=== PATIENT | female | born 1950 | race Hispanic/Latino ===

== ENCOUNTER 2018-05-04 09:56 | Day surgery (SDC) | payer MEDICARE, BC ==
[2018-03-20 16:33] VITALS: BMI 20.9
[2018-05-04] MEDS ORDERED: Lactated Ringer's 1,000 ML IV ONE (12:39)
--- NOTE | 2018-05-04 13:02 | CP.SDSHP ---
Same Day Surgery H & P - History Proposed Procedure: COLONSCOPY Pre-Op Diagnosis: SEE NOTES - Previous Medical/Surgical History Cardiac: ASHD/CAD Neuro: Backaches, Other Misc: Other Pain: 4.Moderate Pain - Allergies Allergies: Allergies pneumonia vaccine Allergy (Uncoded 05/04/18 11:00) SHORTNESS OF BREATH - Physical Exam General Appearance: N Vital Signs: Vital Signs 05/04/18 05/04/18 10:26 11:00 Temperature 97.5 F L 97.5 F L Pulse Rate 80 80 Respiratory 20 20 Rate Blood Pressure 92/66 L 92/66 L O2 Sat by Pulse 100 100 Oximetry Mental Status: Alert & Oriented x3 Neuro: Other Heart: WNL Lungs: WNL GI: Other - {Optional Preform as Required} Breast: WNL Abdomen: Other Rectal: Other Integument: WNL : WNL Ortho: Other ENT: WNL - Impression Pt. Evaluated Today:Candidate for Anesthesia & Procedure: Yes - Date & Time Time: 13:02 Short Stay Discharge - Short Stay Discharge Admitting Diagnosis/Reason for Visit: ANEMIA Disposition: HOME/ ROUTINE Referrals: Job Carias MD [Primary Care Provider] -
[2018-05-04] MEDS ORDERED: Propofol 10 mg/ml Inj (20 ML) ONE (13:08)
[2018-05-04] MEDS ORDERED: Glucagon Recombinant 1 mg Inj ONE (13:17)
[2018-05-04 13:46] VITALS: TEMP 98.7
[2018-05-04] MEDS ORDERED: Belladonna-Phenobarbital PO ONE (13:50)
[2018-05-04 14:37] VITALS: BP 97/56; PULSE 90; RESP 13; O2SAT 99
== END 2018-05-04 14:35 | disposition home or self-care (01) ==
LOC: C.ENDO 09:56
PROVIDERS: ATTEND Specialist
DX: K57.30 Diverticulosis of large intestine without perforation or abscess without bleeding (principal); K58.9 Irritable bowel syndrome, unspecified; K64.8 Other hemorrhoids; K64.4 Residual hemorrhoidal skin tags; D50.9 Iron deficiency anemia, unspecified
CPT/HCPCS: 45380; 88305; J1610; J2704; J7120

== ENCOUNTER 2018-06-11 16:53 | Emergency (ER) | payer MEDICARE, BC ==
[2018-06-11 17:19] VITALS: TEMP 98.3; BMI 20.1
[2018-06-11] MEDS ORDERED: Sodium Chloride 0.9% 1,000 ML IV ONE (17:48)
--- NOTE | 2018-06-11 17:48 | C.PDOC ---
History Of Present Illness Patient is a 68 year old female, with a PMHx of overdose, who presents to ED after being sent in by for evaluation of severe abdominal pain. Patient has had many prior evaluations of abdominal and back pain and claims she does have chronic pain. [employer] reviewed with 8prescribers, 5 pharmacies and extensive narcotics and benzos regimen. She states that she has not used any narcotic pain relievers today. Patient was seen in [place] ER for an unintentional overdose in 2018 of 5 percocet. Time Seen by Provider: 06/11/18 17:37 Chief Complaint (Nursing): Abdominal Pain History Per: Patient, Family History/Exam Limitations: no limitations Onset/Duration Of Symptoms: Days Current Symptoms Are (Timing): Still Present Quality Of Discomfort: "Pain" Recent travel outside of the [place]: No Additional History Per: Patient, Family Past Medical History Reviewed: Historical Data, Nursing Documentation, Vital Signs Vital Signs: Last Vital Signs Temp 98.3 F 06/11/18 17:05 Pulse 115 H 06/11/18 17:05 Resp 20 06/11/18 17:05 BP 135/81 06/11/18 17:05 Pulse Ox 98 06/11/18 17:05 - Medical History PMH: Anemia, Anxiety, Back Problems, Bipolar Disorder, Depression, Fractures (left hip), Gastritis, Gastrointestinal Ulcer, Pancreatitis (WITH STENTS 2010) Denies: Diabetes, Hepatitis, HTN, Chronic Kidney Disease Surgical History: Endoscopy Denies: Pacemaker - [facility] Procedures COLONOSCOPY (01/17/14) DX ULTRASOUND-DIGESTIVE (05/03/13) ESOPHAGOGASTRODUODENOSCOPY [EGD] W/CLOSED BIOPSY (05/03/13) INFLUENZA VACCINATION (05/03/13) INJECT/INFUSE ELECTROLYT (11/09/14) INJECT/INFUSE NEC (11/09/14) MAGNETIC RESONANCE IMAGING OF SPINAL CANAL (05/03/13) MEDICATION MANAGEMENT (05/14/18) VACCINATION NEC (05/03/13) Family History: States: Unknown Family Hx - Social History Hx Tobacco Use: Yes Hx Alcohol Use: Yes Hx Substance Use: No - Immunization History Hx Tetanus Toxoid Vaccination: No Hx Influenza Vaccination: No Hx Pneumococcal Vaccination: No Review Of Systems Gastrointestinal: Positive for: Abdominal Pain Musculoskeletal: Positive for: Back Pain Physical Exam - Physical Exam Appears: Non-toxic, No Acute Distress Skin: Warm, Dry Head: Atraumatic, Normacephalic Eye(s): bilateral: Other (pinpoint pupils) Chest: Symmetrical, No Deformity Cardiovascular: Rhythm Regular, No Murmur Respiratory: Normal Breath Sounds, No Rales, No Rhonchi, No Wheezing Gastrointestinal/Abdominal: Soft, No Tenderness, Other (moving around normally on bed without evidence of severe abdominal pain ) Back: No CVA Tenderness Extremity: Normal ROM Neurological/Psych: Oriented x3 ED Course And Treatment - Laboratory Results Result Diagrams: 06/11/18 18:45 06/11/18 18:45 Lab Interpretation: Normal (ua neg, tox neg, alcohol neg.) O2 Sat by Pulse Oximetry: 98 (on RA) Pulse Ox Interpretation: Normal - Other Rad CXR X-Ray: Viewed By Me, Read By Radiologist Interpretation: IMPRESSION: No evidence of mechanical bowel obstruction. Reevaluation Time: 19:41 Reassessment Condition: Unchanged (remain NAD, benign belly) Medical Decision Making Medical Decision Making: Plan: Labs Obstructive Series IV Fluids Urinalysis Extensive radiology of back showing minor chronic injuries. at bedside begging patient to be removed from chronic narcotic and benzo regimen Explained to patient she will not be receiving any narcotic prescription from [facility]. Patient verbalized understanding. Spoke to PMD Dr. Carias, who reports patient was just in inpatient psych. Appreciates that patient has no significant issues with her abdomen or back. Understands that does not want patient to receive any more chronic narcotic substances A/P: Decompensated bipolar/Schizo, chronic drug seeking behavior (prob self- medicating for psych) no appreciable back/spine/abd pathology + acute on chronic constipation related to chronic narcotics use laxative given and instructed [facility] for abnormal prescribing practices and to encourage alternative pain control methods and psych eval/tx. pt and defer inpt eval tonight and will f/u with PMD Disposition Doctor Will See Patient In The: Office Counseled Patient/Family Regarding: Studies Performed, Diagnosis - Disposition Disposition: HOME/ ROUTINE Disposition Time: 19:43 Condition: GOOD Forms: [facility] ([place]) - Clinical Impression Clinical Impression: Abdominal pain, colicky - Scribe Statement The provider has reviewed the documentation as recorded by the Kenzie Nguyễn All medical record entries made by the Scribe were at my direction and personally dictated by me. I have reviewed the chart and agree that the record accurately reflects my personal performance of the history, physical exam, medical decision making, and the department course for this patient. I have also personally directed, reviewed, and agree with the discharge instructions and disposition.
--- NOTE | 2018-06-11 18:27 | RAD ---
Date of service: 06/11/2018 PROCEDURE: Radiographs of the chest and abdomen (obstructive series) HISTORY: Unspecified abdominal pain. COMPARISON: No prior. TECHNIQUE: AP radiograph of the chest, with upright and supine radiographs of the abdomen. 3 views obtained. FINDINGS: CHEST: Lungs: Clear. Cardiovascular: Normal size heart. No pulmonary vascular congestion. No aortic atherosclerotic calcification present Pleura: No pleural fluid. No pneumothorax. Other findings: None. ABDOMEN AND PELVIS: Bowel: Constipation without fecal impaction or obstruction. Free air: None. Bones: Degenerative changes right hip. Incomplete visualization of left JULIA. Other findings: Calcifications likely within for uterine fibroid. IMPRESSION: No evidence of mechanical bowel obstruction.
[2018-06-11 18:49] LABS: BASO % 0.4 % (0.0-2.0); EOS # 0.3 K/uL (0.0-0.7); EOS % 2.9 % (0.0-4.0); LYMPH # 2.4 K/uL (1.0-4.3); LYMPH % 26.6 % (20.0-40.0); MEAN CORPUSCULAR HEMOGLOBIN 28.2 pg (27.0-31.0); MEAN CORPUSCULAR HGB CONC 32.8 g/dL (33.0-37.0); MEAN PLATELET VOLUME 7.9 fL (7.2-11.7); MONO # 0.7 K/uL (0.0-0.8); MONO % 7.6 % (0.0-10.0); NEUT # 5.7 K/uL (1.8-7.0); NEUT % 62.5 % (50.0-75.0); NRBC % 0.1 % (0.0-2.0); RBC 4.34 Mil/uL (3.80-5.20); RED CELL DISTRIBUTION WIDTH 16.6 % (11.5-14.5); WHITE BLOOD COUNT 9.2 K/uL (4.8-10.8)
[2018-06-11 18:53] LABS: SQUAMOUS EPITHIAL 1 /hpf (0-5); URINE BILIRUBIN NEGATIVE (NEGATIVE); URINE BLOOD NEGATIVE (NEGATIVE); URINE CLARITY Hazy (Clear); URINE COLOR Yellow (YELLOW); URINE GLUCOSE (UA) NORMAL (Normal); URINE HYALINE CAST >20 /lpf (0-2); URINE LEUKOCYTE ESTERASE NEG Leu/uL (Negative); URINE PROTEIN NEGATIVE (NEGATIVE); URINE UROBILINOGEN NORMAL mg/dL (0.2-1.0)
[2018-06-11 18:57] LABS: HEMOGLOBIN 12.2 g/dL (11.0-16.0); MEAN CELL VOLUME 85.8 fL (81.0-99.0)
[2018-06-11 19:04] LABS: BARBITURATES, UR NEGATIVE (NEGATIVE); BENZODIAZEPINES, UR NEGATIVE (NEGATIVE); OPIATES, UR NEGATIVE (NEGATIVE); PHENCYCLIDINE, UR NEGATIVE (NEGATIVE)
[2018-06-11 19:16] LABS: BLOOD UREA NITROGEN 15 mg/dL (7-17); CALCIUM 9.7 mg/dl (8.6-10.4); GFR NON-AFRICAN AMERICAN > 60; LIPASE 72 U/L (23-300)
[2018-06-11 19:18] LABS: ALB/GLOB RATIO 1.3 (1.0-2.1); ALBUMIN 4.5 g/dL (3.5-5.0); ALT/SGPT < 6 U/L (9-52); AST/SGOT 44 U/L (14-36)
[2018-06-11] MEDS ORDERED: Magnesium Citrate Oral SOL (300 ml) PO ONE (19:46)
[2018-06-11 19:57] VITALS: BP 120/70; PULSE 70; RESP 14; O2SAT 97
== END 2018-06-11 19:57 | disposition home or self-care (01) ==
LOC: C.ER 16:53
DX: R10.84 Generalized abdominal pain (principal)
CPT/HCPCS: 74022; 80053; 81001; 83690; 85025; 96360; 99283; G0480; J7030

== ENCOUNTER 2018-06-12 16:45 | Observation (INO) | payer MEDICARE, BC ==
[2018-06-12 16:45] VITALS: BMI 20.1
[2018-06-12] MEDS ORDERED: Sodium Chloride 0.9% 1,000 ML IV ONE (18:07)
--- NOTE | 2018-06-12 18:16 | C.PDOC ---
History Of Present Illness 68 y/o female with chief complaint of abdominal pain and feeling dizzy. Patient with history of gastric ulcers comes in to ED complaining of generalized abdominal pain and dizziness. Patient was seen at a hospital yesterday and was released but continued to have the same problem. Dr. Cruz (GI) recommended admission to the hospital. Patient denies any fever, vomiting, or diarrhea. Time Seen by Provider: 06/12/18 17:58 Chief Complaint (Nursing): Abdominal Pain History Per: Patient History/Exam Limitations: no limitations Onset/Duration Of Symptoms: Days Current Symptoms Are (Timing): Still Present Past Medical History Reviewed: Historical Data, Nursing Documentation, Vital Signs Vital Signs: Last Vital Signs Temp 98.5 F 06/12/18 16:53 Pulse 115 H 06/12/18 17:18 Resp 18 06/12/18 16:53 BP 90/65 L 06/12/18 16:53 Pulse Ox 100 06/12/18 16:53 - Medical History PMH: Anemia, Anxiety, Back Problems, Bipolar Disorder, Depression, Fractures (left hip), Gastritis, Gastrointestinal Ulcer, Pancreatitis (WITH STENTS 2010) Denies: Diabetes, Hepatitis, HTN, Chronic Kidney Disease Surgical History: Endoscopy Denies: Pacemaker - [facility] Procedures COLONOSCOPY (01/17/14) DX ULTRASOUND-DIGESTIVE (05/03/13) ESOPHAGOGASTRODUODENOSCOPY [EGD] W/CLOSED BIOPSY (05/03/13) INFLUENZA VACCINATION (05/03/13) INJECT/INFUSE ELECTROLYT (11/09/14) INJECT/INFUSE NEC (11/09/14) MAGNETIC RESONANCE IMAGING OF SPINAL CANAL (05/03/13) MEDICATION MANAGEMENT (05/14/18) VACCINATION NEC (05/03/13) Family History: States: No Known Family Hx - Social History Hx Tobacco Use: Yes Hx Alcohol Use: Yes Hx Substance Use: No - Immunization History Hx Tetanus Toxoid Vaccination: No Hx Influenza Vaccination: No Hx Pneumococcal Vaccination: No Review Of Systems Except As Marked, All Systems Reviewed And Found Negative. Constitutional: Negative for: Fever, Chills Cardiovascular: Negative for: Chest Pain Respiratory: Negative for: Shortness of Breath Gastrointestinal: Positive for: Abdominal Pain. Negative for: Vomiting, Diarrhea Genitourinary: Negative for: Dysuria, Hematuria Musculoskeletal: Negative for: Back Pain Neurological: Positive for: Dizziness Physical Exam - Physical Exam Appears: Non-toxic, No Acute Distress Skin: Warm, Dry Head: Atraumatic, Normacephalic Eye(s): bilateral: Normal Inspection Oral Mucosa: Moist Neck: Supple Cardiovascular: Rhythm Regular, No Murmur Respiratory: Normal Breath Sounds, No Rales, No Rhonchi, No Wheezing Gastrointestinal/Abdominal: Soft, Tenderness (diffuse abdominal tenderness), No Guarding, No Rebound Extremity: Bilateral: Atraumatic, Normal ROM Neurological/Psych: Oriented x3, Normal Speech ED Course And Treatment O2 Sat by Pulse Oximetry: 100 (RA) Pulse Ox Interpretation: Normal Medical Decision Making Medical Decision Making: Plan: --EKG --Labs --IV fluids Discussed with Dr. Cruz, admit patient to Dr. Cid. Dr. Cid accepted patient to medical floor. Disposition Discussed With : Donita Cid Doctor Will See Patient In The: Hospital - Disposition Disposition: HOSPITALIZED Disposition Time: 18:15 Condition: STABLE Forms: [facility] ([place]) - Clinical Impression Clinical Impression: Abdominal pain, Vertigo, Gastritis - Scribe Statement The provider has reviewed the documentation as recorded by the Kenzie Crockett Provider Attestation: All medical record entries made by the Kenzie were at my direction and personally dictated by me. I have reviewed the chart and agree that the record accurately reflects my personal performance of the history, physical exam, medical decision making, and the department course for this patient. I have also personally directed, reviewed, and agree with the discharge instructions and disposition.
[2018-06-12 18:45] LABS: EOS # 0.4 K/uL (0.0-0.7); MONO # 0.6 K/uL (0.0-0.8)
[2018-06-12 18:51] LABS: BASO # 0.1 K/uL (0.0-0.2); BASO % 1.4 % (0.0-2.0); EOS % 4.4 % (0.0-4.0); HEMOGLOBIN 10.7 g/dL (11.0-16.0); LYMPH # 2.1 K/uL (1.0-4.3); LYMPH % 24.2 % (20.0-40.0); MEAN CELL VOLUME 87.4 fL (81.0-99.0); MEAN PLATELET VOLUME 7.9 fL (7.2-11.7); MONO % 6.4 % (0.0-10.0); NEUT # 5.5 K/uL (1.8-7.0); NEUT % 63.6 % (50.0-75.0); RBC 3.81 Mil/uL (3.80-5.20); RED CELL DISTRIBUTION WIDTH 16.4 % (11.5-14.5); WHITE BLOOD COUNT 8.7 K/uL (4.8-10.8)
[2018-06-12 19:05] LABS: ALB/GLOB RATIO 1.4 (1.0-2.1); ALBUMIN 3.8 g/dL (3.5-5.0); ALT/SGPT 6 U/L (9-52); AST/SGOT 21 U/L (14-36); BLOOD UREA NITROGEN 10 mg/dL (7-17); GFR NON-AFRICAN AMERICAN > 60; LIPASE 63 U/L (23-300)
[2018-06-12] MEDS: Dextrose 5%/0.45% NS 1,000 ML IV SCH (21:47)
[2018-06-13] MEDS ORDERED: Pantoprazole 40 mg EC Tab PO SCH (06:00)
[2018-06-13] MEDS: Dextrose 5%/0.45% NS 1,000 ML IV SCH ×2 (06:36→15:57)
--- NOTE | 2018-06-13 09:24 | PN ---
DATE: 06/13/2018 LOCATION: 563, bed A. SUBJECTIVE: This 68-year-old female seen and examined initially for GI consultation on 06/12/2018, reexamined again early this morning with the same complaint of generalized weakness and malaise, abdominal pain on and off with nausea and dyspepsia with postprandial abdominal distention as well as reported loose bowel movement post laxative intake yesterday. The patient appeared to be awake, alert and oriented without reported chest pain, palpitation or evidence of active GI bleeding. The entire chart is reviewed including but not limited to the most recent lab and radiology study results, current and the previous medication list, current and the previous medical events. Case discussed with the staff at length. It has to be mentioned that the patient had an upper endoscopy indicative of gastric ulcers and the colonoscopy indicative of diverticulosis with colitis recently on 05/04/2018, please see report. Most recent lab results showed hemoglobin of 10.7, hematocrit 33.3 with normal white blood cells and platelet count, but blood glucose level of 114 with normal liver function tests as well as normal lipase level. CAT scan of the abdomen and pelvis before is done, please see report. PHYSICAL EXAMINATION: GENERAL: A 68-year-old female. VITAL SIGNS: Afebrile with pulse of 82, respiratory rate 20 to 22, blood pressure 136/82, complaining of vertigo on and off and dizziness with generalized body ache. HEENT: Showed pale, dry oral mucous membrane. Nonicteric sclerae. LUNGS: Few scattered crepitation. Decreased air entry at bases. HEART: Positive S1 and S2. ABDOMEN: Soft with mild generalized tenderness and slight distention. Bowel sounds are hypoactive. No mass or organomegaly. No rebound tenderness or guarding. RECTAL: The patient refused. EXTREMITIES: Without significant clubbing, cyanosis or edema but evidence of muscle wasting syndrome. NEUROLOGIC: No reported new neurological deficits, sensory or motor. IMPRESSION: 1. Vertigo of unclear etiology, to rule out acute labyrinthitis. 2. Re-exacerbation of peptic ulcer disease with known history of gastric and duodenal ulcer. The patient may need repeat upper endoscopy. 3. Known history of but not limited to severe anxiety syndrome, depression, chronic lower back pain, left hip fracture. 4. Anemia, secondary to above most likely. 5. Diverticulosis without clear evidence of diverticulitis. SUGGESTIONS: 1. Agree with your plan. 2. Proton pump inhibitors. 3. tab. 4. May add Carafate p.o. 5. Endoscopic evaluation of the upper GI tract when the patient is more stable clinically. Further recommendations to follow. Hayley Kendrick MD
[2018-06-13] MEDS: HYDROmorphone 1 mg/ml ISec IVP PRN ×2 (09:45→17:42)
[2018-06-13 11:48] LABS: AMYLASE 36 U/L (30-110); LIPASE 47 U/L (23-300)
[2018-06-13 12:45] LABS: PROTHROMBIN TIME 10.8 SECONDS (9.7-12.2)
[2018-06-14] MEDS: Dextrose 5%/0.45% NS 1,000 ML IV SCH ×3 (01:00→22:28)
[2018-06-14] MEDS: HYDROmorphone 1 mg/ml ISec IVP PRN ×3 (01:43→17:41)
--- NOTE | 2018-06-14 07:34 | CP.PCM.PN ---
Subjective - Date & Time of Evaluation Date of Evaluation: 06/14/18 Time of Evaluation: 07:32 - Subjective Subjective: PGY3 note for Dr. Cid's service Pt seen and examined at bedside. Nursing reports no acute events overnight. Patient states she has "8-9/10" burning pain diffusely in her abdomen. Dilaudid is the only thing that has helped and brings pain down to 4/10. Admits nausea, but denies blood in stool, diarrhea or vomiting. Patient is a 68 y/o female admitted on 06/12/18 for chief complaint of abdominal pain and feeling dizzy. Patient with pertinent history of gastric ulcers and diverticulosis comes in to ED complaining of generalized abdominal pain and dizziness. Patient was seen at a hospital yesterday and was released but continued to have the same problem. Dr. Cruz (GI) recommended admission to the hospital. Patient denies any fever, vomiting, or diarrhea. Objective - Vital Signs/Intake and Output Vital Signs (last 24 hours): Temp Pulse Resp BP Pulse Ox 97.8 F 76 20 123/80 94 L 06/14/18 00:00 06/14/18 00:00 06/14/18 00:00 06/14/18 00:00 06/14/18 00:00 - Medications Medications: Current Medications Amlodipine Besylate (Norvasc) 5 mg PO DAILY [facility] Last Admin: 06/13/18 09:49 Dose: 5 mg Clonidine HCl (Catapres) 0.1 mg PO BID [facility] Last Admin: 06/13/18 17:41 Dose: 0.1 mg Docusate Sodium (Colace) 100 mg PO BID [facility] Last Admin: 06/13/18 20:52 Dose: Not Given Escitalopram Oxalate (Lexapro) 20 mg PO DAILY [facility] Last Admin: 06/13/18 09:49 Dose: 20 mg Hydromorphone HCl (Dilaudid) 1 mg IVP Q8 PRN PRN Reason: Pain, severe (8-10) Last Admin: 06/14/18 01:43 Dose: 1 mg Dextrose/Sodium Chloride (Dextrose 5%/0.45% Ns 1000 Ml) 1,000 mls @ 100 mls/hr IV .Q10H [facility] Last Admin: 06/14/18 01:00 Dose: 100 mls/hr Ketorolac Tromethamine (Toradol) 30 mg IVP Q8 PRN PRN Reason: pain, moderate pain 4-6 Pantoprazole Sodium (Protonix Inj) 40 mg IVP DAILY [facility] Last Admin: 06/13/18 09:50 Dose: Not Given Quetiapine Fumarate (Seroquel) 200 mg PO HS [facility] Last Admin: 06/13/18 21:43 Dose: 200 mg - Labs Labs: 06/12/18 18:42 06/12/18 18:42 PT 10.8 SECONDS (9.7-12.2) 06/13/18 11:28 INR 1.0 06/13/18 11:28 APTT 33 SECONDS (21-34) 06/13/18 11:28 - Constitutional Appears: Non-toxic, No Acute Distress - Head Exam Head Exam: ATRAUMATIC, NORMAL INSPECTION - Eye Exam Eye Exam: EOMI Pupil Exam: PERRL - ENT Exam ENT Exam: Mucous Membranes Moist - Neck Exam Neck Exam: Full ROM - Respiratory Exam Respiratory Exam: Clear to Ausculation Bilateral, NORMAL BREATHING PATTERN. absent: Rales, Rhonchi, Wheezes - Cardiovascular Exam Cardiovascular Exam: REGULAR RHYTHM, +S1, +S2 - GI/Abdominal Exam GI & Abdominal Exam: Soft, Normal Bowel Sounds. absent: Tenderness - Extremities Exam Extremities Exam: Normal Inspection - Back Exam Back Exam: CVA tenderness (R). absent: CVA tenderness (L) - Neurological Exam Neurological Exam: Alert, Awake, Oriented x3 Assessment and Plan - Assessment and Plan (Free Text) Plan: Peptic ulcer disease? Hx of gastric and duodenal ulcer Admit to med/surg; NPO Diet Lipase/AST/ALT/CA markers all WNL Dr. Cruz, GI networks software consultant - PPI, , Carafate - endoscopy today Protonix 40mg IV D5/1/2 NS @ 100cc/hr Toradol 30mg IV Q8H PRN Dilaudid 1mg IV Q8H PRN, severe f/u C diff - f/u endoscopy Anemia Hgb 10.7 on admission; RDW 16.4 Today Hgb 10.2 Monitor HTN, well-controlled today Norvasc 5mg PO Daily Clonidine 0.1 mg PO BID Monitor IGT A1c: 5.9 in 01/2016 f/u repeat A1c Hx of hyperthyroidism TSH 0.37 in 03/2018 f/u TSH in AM Anxiety/Depression Lexapro 20mg PO Daily Seroquel 200mg PO HS PPX Colace 100mg PO BID VTE (hold) Protonix 40mg IV Daily NPO Disposition: for endoscopy this AM; f.u results Junior Francisco PGY3 MGMT per [facility]
[2018-06-14 11:44] LABS: BASO # 0.2 K/uL (0.0-0.2); BASO % 2.2 % (0.0-2.0); EOS # 0.6 K/uL (0.0-0.7); EOS % 8.4 % (0.0-4.0); HEMOGLOBIN 10.2 g/dL (11.0-16.0); LYMPH # 1.6 K/uL (1.0-4.3); MEAN CELL VOLUME 87.9 fL (81.0-99.0); MEAN CORPUSCULAR HEMOGLOBIN 29.1 pg (27.0-31.0); MEAN CORPUSCULAR HGB CONC 33.2 g/dL (33.0-37.0); MEAN PLATELET VOLUME 7.9 fL (7.2-11.7); MONO # 0.3 K/uL (0.0-0.8); MONO % 4.8 % (0.0-10.0); NEUT # 4.3 K/uL (1.8-7.0); NEUT % 61.6 % (50.0-75.0); RBC 3.51 Mil/uL (3.80-5.20); RED CELL DISTRIBUTION WIDTH 16.2 % (11.5-14.5); WHITE BLOOD COUNT 6.9 K/uL (4.8-10.8)
[2018-06-14] MEDS ORDERED: Lactated Ringer's 500 ML IV SCH (11:45)
[2018-06-14] MEDS ORDERED: Lactated Ringer's 1,000 ML IV ONE (11:50)
[2018-06-14] MEDS ORDERED: Propofol 10 mg/ml Inj (20 ML) ONE (11:51)
[2018-06-14 12:00] LABS: ALB/GLOB RATIO 1.3 (1.0-2.1); ALBUMIN 3.5 g/dL (3.5-5.0); ALT/SGPT < 6 U/L (9-52); AST/SGOT 26 U/L (14-36); BLOOD UREA NITROGEN 3 mg/dL (7-17); CALCIUM 8.7 mg/dl (8.6-10.4); GFR NON-AFRICAN AMERICAN > 60
[2018-06-14] MEDS ORDERED: Peg-Electrolyte Oral Soln 4L (Golytely) PO ONE (13:30)
[2018-06-14 16:20] VITALS: RESP 20
[2018-06-14] MEDS: Bisacodyl 5mg EC Tab PO ONE (17:32)
[2018-06-15] MEDS: HYDROmorphone 1 mg/ml ISec IVP PRN ×2 (01:42→11:24)
--- NOTE | 2018-06-15 06:36 | HP ---
HISTORY OF PRESENT ILLNESS: Mrs. Ann admitted to hospital for complaint of abdominal pain, today has been seen by Dr. Hunt, GI consult. The patient has a history of hypertension and has a history of chronic pain. PHYSICAL EXAMINATION: GENERAL: The patient is awake, alert, oriented. VITAL SIGNS: Temperature 98, pulse 90. HEENT: Within normal limits. NECK: Supple. CHEST: Symmetrical. HEART: Regular. ABDOMEN: Soft. EXTREMITIES: No edema. PLAN: The patient suffering from chronic abdominal pain. The patient was getting endoscopy, pain management. Donita Cid MD
--- NOTE | 2018-06-15 06:49 | CP.PCM.PN ---
Subjective - Date & Time of Evaluation Date of Evaluation: 06/15/18 Time of Evaluation: 06:48 - Subjective Subjective: PGY3 note for Dr. Cid's service Pt seen and examined at bedside. Nursing reports no acute events overnight. States her pain is still diffuse and 10/10. Denies fever, chills, vomiting overnight. Patient states she is drinking go-lytely for prep of colonoscopy later this AM. Objective - Vital Signs/Intake and Output Vital Signs (last 24 hours): Temp Pulse Resp BP Pulse Ox 97.6 F 84 20 124/74 98 06/15/18 00:00 06/15/18 00:00 06/15/18 00:00 06/15/18 00:00 06/15/18 00:00 Intake and Output: 06/14/18 06/15/18 18:59 06:59 Intake Total 1600 850 Balance 1600 850 - Medications Medications: Current Medications Amlodipine Besylate (Norvasc) 5 mg PO DAILY [facility] Last Admin: 06/14/18 09:28 Dose: 5 mg Clonidine HCl (Catapres) 0.1 mg PO BID [facility] Last Admin: 06/14/18 17:32 Dose: 0.1 mg Docusate Sodium (Colace) 100 mg PO BID [facility] Last Admin: 06/14/18 17:32 Dose: 100 mg Escitalopram Oxalate (Lexapro) 20 mg PO DAILY [facility] Last Admin: 06/14/18 09:41 Dose: 20 mg Hydromorphone HCl (Dilaudid) 1 mg IVP Q8 PRN PRN Reason: Pain, severe (8-10) Last Admin: 06/15/18 01:42 Dose: 1 mg Dextrose/Sodium Chloride (Dextrose 5%/0.45% Ns 1000 Ml) 1,000 mls @ 100 mls/hr IV .Q10H [facility] Last Admin: 06/14/18 22:28 Dose: 100 mls/hr Ketorolac Tromethamine (Toradol) 30 mg IVP Q8 PRN PRN Reason: pain, moderate pain 4-6 Last Admin: 06/14/18 13:34 Dose: 30 mg Pantoprazole Sodium (Protonix Inj) 40 mg IVP DAILY [facility] Last Admin: 06/14/18 09:28 Dose: 40 mg Quetiapine Fumarate (Seroquel) 200 mg PO HS [facility] Last Admin: 06/14/18 22:01 Dose: 200 mg - Labs Labs: 06/14/18 11:31 06/14/18 11:31 PT 10.8 SECONDS (9.7-12.2) 06/13/18 11:28 INR 1.0 06/13/18 11:28 APTT 33 SECONDS (21-34) 06/13/18 11:28 - Additional Findings Additional findings: - Constitutional Appears: Non-toxic, No Acute Distress - Head Exam Head Exam: ATRAUMATIC, NORMAL INSPECTION - Eye Exam Eye Exam: EOMI Pupil Exam: PERRL - ENT Exam ENT Exam: Mucous Membranes Moist - Neck Exam Neck Exam: Full ROM - Respiratory Exam Respiratory Exam: Clear to Ausculation Bilateral, NORMAL BREATHING PATTERN. absent: Rales, Rhonchi, Wheezes - Cardiovascular Exam Cardiovascular Exam: REGULAR RHYTHM, +S1, +S2 - GI/Abdominal Exam GI & Abdominal Exam: Soft, Hyperactive Bowel Sounds, Diffuse tenderness to palpation over entire bowel (worst left upper quadrant). absent: rebound - Extremities Exam Extremities Exam: Normal Inspection - Back Exam Back Exam: CVA tenderness (R). absent: CVA tenderness (L) - Neurological Exam Neurological Exam: Alert, Awake, Oriented x3 Assessment and Plan - Assessment and Plan (Free Text) Plan: Dyspepsia Hx of gastric and duodenal ulcer Admit to med/surg; NPO Diet Lipase/AST/ALT/CA markers all WNL Endoscopy (06/14/18): Candidias esophagitis. Small hiatal hernia. Dr. Cruz, GI moving consultant - PPI, , Carafate Protonix 40mg IV D5/1/2 NS @ 100cc/hr Toradol 30mg IV Q8H PRN, moderate Decrease Dilaudid from 1mg to 0.5 IV Q6H PRN, severe f/u C diff Esophageal candidiasis Seen on Endoscopy Diflucan 100mg PO Daily x 2 weeks History of iron deficiency Anemia Hgb stable throughout admission Monitor HTN, well-controlled today Norvasc 5mg PO Daily Clonidine 0.1 mg PO BID Monitor IGT A1c: 5.9 in 01/2016 -repeat A1c 5.9 Hx of hyperthyroidism TSH 2.03 TSH 0.37 in 03/2018; Hiatal hernia/GERD Seen on endoscopy Protonix 40mg IV Daily Anxiety/Depression Lexapro 20mg PO Daily Seroquel 200mg PO HS PPX Colace 100mg PO BID VTE (hold) Protonix 40mg IV Daily NPO Disposition: Endoscopy without findings that correlate to pain level. f/u colonoscopy. decrease dilaudid dosage. Junior Francisco PGY3 MGMT per [facility]
[2018-06-15 07:01] LABS: BASO # 0.2 K/uL (0.0-0.2); EOS # 0.7 K/uL (0.0-0.7); EOS % 7.9 % (0.0-4.0); HEMOGLOBIN 10.4 g/dL (11.0-16.0); LYMPH # 2.3 K/uL (1.0-4.3); LYMPH % 26.6 % (20.0-40.0); MEAN CELL VOLUME 87.5 fL (81.0-99.0); MEAN CORPUSCULAR HEMOGLOBIN 28.5 pg (27.0-31.0); MEAN CORPUSCULAR HGB CONC 32.6 g/dL (33.0-37.0); MEAN PLATELET VOLUME 7.7 fL (7.2-11.7); MONO # 0.6 K/uL (0.0-0.8); MONO % 6.8 % (0.0-10.0); NEUT # 4.9 K/uL (1.8-7.0); NEUT % 56.7 % (50.0-75.0); RBC 3.66 Mil/uL (3.80-5.20); RED CELL DISTRIBUTION WIDTH 16.8 % (11.5-14.5); WHITE BLOOD COUNT 8.7 K/uL (4.8-10.8)
[2018-06-15 07:40] LABS: ALB/GLOB RATIO 1.4 (1.0-2.1); ALBUMIN 3.6 g/dL (3.5-5.0); ALT/SGPT 19 U/L (9-52); AST/SGOT 24 U/L (14-36); BLOOD UREA NITROGEN 5 mg/dL (7-17); CALCIUM 8.7 mg/dl (8.6-10.4); GFR NON-AFRICAN AMERICAN > 60
[2018-06-15] MEDS ORDERED: Propofol 10 mg/ml Inj (20 ML) ONE (09:58)
[2018-06-15] MEDS ORDERED: Lactated Ringer's 500 ML IV ONE (10:01)
[2018-06-15] MEDS ORDERED: Magnesium Citrate Oral SOL (300 ml) PO ONE (10:25)
[2018-06-15] MEDS ORDERED: Lidocaine Hydrochloride 5 ML INJ ONE (10:27)
[2018-06-15] MEDS: Dextrose 5%/0.45% NS 1,000 ML IV SCH (11:37)
[2018-06-15] MEDS ORDERED: Belladonna-Phenobarbital PO STA (12:13)
--- NOTE | 2018-06-15 15:35 | CARD ---
APPROVED REPORT Date of service: 06/12/2018 EKG Measurement Heart [id number] <Conclusion> Sinus tachycardia with short MO Otherwise normal ECG
[2018-06-15] MEDS ORDERED: HYDROmorphone 0.5 mg/0.5 ml ISec IVP PRN (16:00)
[2018-06-15 16:33] VITALS: BP 143/83; PULSE 79; TEMP 97.8
[2018-06-15] MEDS: Bisacodyl 5mg EC Tab PO ONE ×4 (17:47→17:54)
[2018-06-15 18:43] VITALS: O2SAT 99
== END 2018-06-15 18:41 | disposition home or self-care (01) ==
LOC: C.ER 16:45 → C.9E 18:14 → C.5S 18:56 → C.3T 06-13 16:25
PROVIDERS: ADMIT Internal Medicine Pulmonary Disease; ATTEND Internal Medicine Pulmonary Disease
DX: K29.70 Gastritis, unspecified, without bleeding (principal); I10 Essential (primary) hypertension; D64.9 Anemia, unspecified; Z87.891 Personal history of nicotine dependence; K64.8 Other hemorrhoids
CPT/HCPCS: 36415; 43239; 45378; 80053; 82150; 82378; 83036; 83690; 83735; 84443; 85025; 85610; 85730; 86304; 88305; 88342; 93005; 99285; C9113; G0378; J1170; J1885; J7030; J7042; J7120